=== PATIENT | female | born 1950 | race African-American/Black ===

== ENCOUNTER 2022-04-10 08:59 | Emergency (ER) | payer OTHER, MEDICARE | END 2022-04-10 10:03 | disposition home or self-care (01) | LOC: CSHERS 08:59 | DX: S82.002A Unspecified fracture of left patella, initial encounter for closed fracture (principal); E11.9 Type 2 diabetes mellitus without complications; I10 Essential (primary) hypertension; Z79.899 Other long term (current) drug therapy; Z79.82 Long term (current) use of aspirin; Z79.4 Long term (current) use of insulin; W01.0XXA Fall on same level from slipping, tripping and stumbling without subsequent striking against object, initial encounter | CPT/HCPCS: 99283 ==